=== PATIENT | female | born 1945 | race Caucasian/White ===

== ENCOUNTER 2018-05-17 05:24 | Outpatient (RCR) | payer OTHER, SELFPAY ==
[2018-05-17] MEDS: Normal Saline Flush 10 ML SYR IVP (14:06)
[2018-05-24] MEDS: Normal Saline Flush 10 ML SYR IVP (13:45)
[2018-05-31] MEDS: Normal Saline Flush 10 ML SYR IVP (10:36)
== END 2018-06-14 ==
LOC: INF 05-24 01:14
PROVIDERS: PCP Family Medicine Adult Medicine; Visit Provider Orthopaedic Surgery
DX: T84.54XA Infection and inflammatory reaction due to internal left knee prosthesis, initial encounter (principal); M00.062 Staphylococcal arthritis, left knee; B95.61 Methicillin susceptible Staphylococcus aureus infection as the cause of diseases classified elsewhere
CPT/HCPCS: 96365; J0878

== ENCOUNTER 2018-06-25 10:55 | Outpatient (CLI) | payer OTHER, SELFPAY ==
[2018-06-25 11:24] LABS: C-Reactive Protein 1.21 mg/dL (0.0-0.3)
== END 2018-06-25 11:15 ==
PROVIDERS: PCP Family Medicine Adult Medicine; Visit Provider Orthopaedic Surgery
DX: T84.7XXD Infection and inflammatory reaction due to other internal orthopedic prosthetic devices, implants and grafts, subsequent encounter (principal)
CPT/HCPCS: 36415; 86140